=== PATIENT | male | born 2005 | race African-American/Black ===

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

== ENCOUNTER 2024-08-15 14:13 | Emergency (ER) | payer SELFPAY ==
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
[2024-08-15 14:39] VITALS: BP 115/71; PULSE 66; RESP 18; TEMP 36.7; O2SAT 100
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
[2024-08-15] MEDS: HYDROcodone/acetaminophen (*CRX) 5-325 MG TABLET 1 TAB PO (17:39)
[2024-08-15 18:40] VITALS: BP 142/91; PULSE 75; RESP 16; TEMP 36.6; O2SAT 99
[2024-08-15 18:43] VITALS: BP 142/91; PULSE 75; RESP 16; TEMP 36.6; O2SAT 99
== END 2024-08-15 18:58 | disposition home or self-care (01) ==
LOC: ANHED 18:55
PROVIDERS: Emergency Provider Registered Nurse; PCP Pediatrics
DX: S06.0X0A Concussion without loss of consciousness, initial encounter (principal); S13.4XXA Sprain of ligaments of cervical spine, initial encounter; S29.012A Strain of muscle and tendon of back wall of thorax, initial encounter; S39.012A Strain of muscle, fascia and tendon of lower back, initial encounter; F41.9 Anxiety disorder, unspecified; F32.A Depression, unspecified; Z98.1 Arthrodesis status; V49.40XA Driver injured in collision with unspecified motor vehicles in traffic accident, initial encounter; Z79.899 Other long term (current) drug therapy
CPT/HCPCS: 70450; 72125; 72128; 72131; 73030; 99284; A9270